=== PATIENT | female | born 1950 | race Caucasian/White ===

== ENCOUNTER 2022-12-19 11:19 | Emergency (ER) | payer OTHER ==
--- OUTSIDE RECORDS SUMMARY | 2022-12-19 11:24 | XMS REPORT | Continuity of Care Document ---
:1950 Author Organization [facility] t Address [address] [place] [address] [place] [id number] Care Team Providers Name Role Phone Va Weems MD Primary Care Physician Sissy Orellana Attending Clinician Unavailable Hue Lutz Attending Clinician Unavailable Carolina Hartley Attending Clinician Unavailable Va Weems Attending Clinician Unavailable Casimiro Tarango Attending Clinician Payers Payer Name Policy Type Policy Number Effective Date Expiration Date Eufemia dent AETNA MEDICARE 53 [id number] 2013 [facility] [facility] MEDICARE MB [id number] 2012 [facility] NOVITAS 00:00:00 [facility] MEDICARE [id number] 2012 [facility] NOVITAS 00:00:00 - [facility] MEDICARE [id number] 2012 [facility] NOVITAS 00:00:[address] [facility] MEDICARE MB [id number] 2012 [facility] NOVITAS 00:00:00 [facility] Problems Condition Condition Condition Status Onset Resolution Last Treating Co mments Source Name Details Category Date Date Treatment Clinician Date Hypertensi Hypertens Problem Active 2022-08-04 Memoria ve aston 11:34:36 l disorder, disorder, Herm faith systemic systemic arterial arterial (disorder) (disorder) Active Problem 08/04/2022 [facility] [place] Muscle Muscle Problem Active 2022-08-04 Jamie alfonso fasciculat fasciculat 11:34:36 l ion yuliya Marinelli (finding) (finding) Active Problem 08/04/2022 [facility] [place] [id number] Vitamin D Problem Comm on deficiency [facility] Fatigue Fatigue Problem Common [facility] Anxiety Anxiety Problem Common [facility] [id number] Hyperlipid Problem Com mon emia, Spirit unspecifie - CHI d hyperlipid [facility] emia type [facility] Elevated Elevated Problem Commo n blood-pres blood-pres Sp heather sure sure - CHI reading reading [facility] without without [facility] diagnosis diagnosis [facility]i denn[facility] hypertensi hypertensi on on History of Status Problem Commo n breast post Spirit augmentati silicone - [facility] on breast [facility] [id number] Environmen Problem Co mmon roro Spirit allergies [facility] [id number] Essential Problem Comm on hypertensi Spirit on [facility] [id number] Osteopenia Problem Co mmon , Spirit unspecifie - CHI d location [facility] [id number] Well adult Problem Co mmon exam [facility] Family Family Problem Common history of history of Sp heather endocrine thyroid - CHI disorders dysfunctio [facility] [id number] Status Problem Commo n 9103 post Spirit implant - CHI removal St from both [facility] Family Family Problem Common history of history of Sp heather cardiovasc cardiovasc - [facility] ular ular St disease disease [facility] Abnormal Abnormal Problem Commo n liver liver [facility] function function [facility] [id number] History of Problem Co mmon basal cell [facility] carcinoma [facility] No known No known Disease Metho di active active st problems problems Hospit a l Allergies, Adverse Reactions, Alerts Allergy Allergy Status Severity Reaction(s) Onset Inactive Treating Comm ents Source Name Type Date Date Clinician Adhesive Propensi Active Rash 2018-02 Method i Tape-Tiffany ty to 02-21 st icones adverse 00:00: Hospita reaction 00 l s to drug Hydrocod Propensi Active Other (See 2018-02 Insomnia Methodi one ty to Comments) 02-21 st adverse 00:00: Hospita reaction 00 l s to drug Penicill Propensi Active Anaphylaxis 2018-02 M ethodi ins ty to 02-21 st adverse 00:00: Hospita reaction 00 l s to drug Shellfis Propensi Active Swelling 2018-02 Has had Met hodi h ty to 02-[address] Derived adverse 00:00: in past Hospita reaction 00 l s to drug Penicill Penicill Active anaphylaxis C ommon in in [facility] crab crab Active Unknown Common allergen allergen [facility] extract extract [facility] Blueberr Blueberr Active Unknown Commo n ies ies [facility] 4614 Drug Active burning Common allergy [facility] shrimp shrimp Active Unknown Common allergen allergen [facility] extract extract [facility] shellfis shellfis Active Memori a h h l Frannie penicill penicill Active Memori a in in l Frannie Family History Family Member Diagnosis Comments Start Date Stop Date Source Natural father [facility] Natural mother [facility] Natural sister [facility] Social History Social Habit Start Date Stop Date Quantity Comments Source History of Tobacco [facility] Sexual orientation [facility] Alcohol intake 2019-01-10 2019-01-10 Current Taoist 00:00:00 00:00:00 non-drinker of Hospital alcohol (finding) History of Social 2019-01-05 2019-01-[address] function 00:00:00 00:00:00 Hospital Tobacco use and 2017-09-11 2017-09-11 Smokeless Taoist exposure 00:00:00 00:00:00 tobacco non-user Hospital Sex Ass[birth year] At [birth year] [facility] 00:00:00 00:00:00 Hospital Smoking Status Start Date Stop Date Source Tobacco smoking status [facility] Medications Ordered Filled Start Stop Current Ordering Indication Dosage Frequency Signature Comments Components Source Medication Medication Date Date Medication? Clinician (SIG) Name Name losartan 50 Yes TAKE 1 Jamie alfonso mg oral 5-08 TABLET BY l tablet 14:58: MOUTH Frannie 00 EVERY DAY FOR 90 DAYS atorvastati 0 Yes TAKE 1 Jamie alfonso n 20 mg 5-08 TABLET BY l oral tablet 14:58: MOUTH Ema nn 00 EVERY DAY IN THE EVENING losartan 50 0 Yes TAKE 1 Jamie alfonso mg oral 5-08 TABLET BY l tablet 14:58: MOUTH Frannie 00 EVERY DAY FOR 90 DAYS atorvastati 0 Yes TAKE 1 Jamie alfonso n 20 mg 5-08 TABLET BY l oral tablet 14:58: MOUTH Ema nn 00 EVERY DAY IN THE EVENING losartan 50 0 Yes TAKE 1 Jamie alfonso mg oral 5-08 TABLET BY l tablet 14:58: MOUTH Frannie 00 EVERY DAY FOR 90 DAYS atorvastati 0 Yes TAKE 1 Jamie alfonso n 20 mg 5-08 TABLET BY l oral tablet 14:58: MOUTH Ema nn 00 EVERY DAY IN THE EVENING Macrobid Macrobid 0 2021- No 1{capsu BID Macrobid 100 MG 100 MG 09-06 le_with 100 MG 00:00: 00:00 _food} 00 :00 B 2018-02 Yes 1{tbl} QD Take 1 Methodi complex-vit 1-[address] ross 06:47: mouth Hospita C-folic 15 daily. l acid (FOLBEE PLUS 5 MG) 5 mg tablet per tablet cholecalcif 2018-02 Yes 2000U QD Take 2,000 Methodi frantz, 1-[address] vitamin D3, 06:47: mouth Hospi ta (VITAMIN 15 daily. l D3) 2,000 unit capsule capsule ascorbic 2018-02 Yes 500mg QD Take 500 Meth sylwia acid, 1-[address] vitamin C, 06:47: mouth Hospit a (VITAMIN C) 15 daily. l 500 MG tablet biotin 5 mg 2018-02 Yes 5mg QD Take 5 mg M ethodi capsule 1-[address] 06:47: daily. Hospita 15 l B 2018-02 Yes 1{tbl} QD Take 1 Methodi complex-vit 1-[address] ross 06:47: mouth Hospita C-folic 15 daily. l acid (FOLBEE PLUS 5 MG) 5 mg tablet per tablet cholecalcif 2018-02 Yes 2000U QD Take 2,000 Methodi frantz, 1-[address] vitamin D3, 06:47: mouth Hospi ta (VITAMIN 15 daily. l D3) 2,000 unit capsule capsule ascorbic 2018-02 Yes 500mg QD Take 500 Meth sylwia acid, 1-28 mg by vitamin C, 06:47: mouth Hospit a (VITAMIN C) 15 daily. l 500 MG tablet biotin 5 mg 2018-02 Yes 5mg QD Take 5 mg M ethodi capsule 03-[address] 06:47: daily. Hospita 15 l B 2018-02 Yes 1{tbl} QD Take 1 Methodi complex-vit -[address] ross 06:47: mouth Hospita C-folic 15 daily. l acid (FOLBEE PLUS 5 MG) 5 mg tablet per tablet cholecalcif 2018-02 Yes 2000U QD Take 2,000 Methodi frantz, 1-28 Units by vitamin D3, 06:47: mouth Hospi ta (VITAMIN 15 daily. l D3) 2,000 unit capsule capsule ascorbic 2018-02 Yes 500mg QD Take 500 Meth sylwia acid, 1-28 mg by vitamin C, 06:47: mouth Hospit a (VITAMIN C) 15 daily. l 500 MG tablet biotin 5 mg 2018-02 Yes 5mg QD Take 5 mg M ethodi capsule 03-[address] 06:47: daily. Hospita 15 l B 2018-02 Yes 1{tbl} QD Take 1 Methodi complex-vit -[address] ross 06:47: mouth Hospita C-folic 15 daily. l acid (FOLBEE PLUS 5 MG) 5 mg tablet per tablet cholecalcif 2018-02 Yes 2000U QD Take 2,000 Methodi frantz, 1-28 Units by vitamin D3, 06:47: mouth Hospi ta (VITAMIN 15 daily. l D3) 2,000 unit capsule capsule ascorbic 2018-02 Yes 500mg QD Take 500 Meth sylwia acid, 1-28 mg by vitamin C, 06:47: mouth Hospit a (VITAMIN C) 15 daily. l 500 MG tablet biotin 5 mg 2018-02 Yes 5mg QD Take 5 mg M ethodi capsule 03-[address] 06:47: daily. Hospita 15 l B 2018-02 Yes 1{tbl} QD Take 1 Methodi complex-vit 1-[address] ross 06:47: mouth Hospita C-folic 15 daily. l acid (FOLBEE PLUS 5 MG) 5 mg tablet per tablet cholecalcif 2018-02 Yes 2000U QD Take 2,000 Methodi frantz, 1-[address] vitamin D3, 06:47: mouth Hospi ta (VITAMIN 15 daily. l D3) 2,000 unit capsule capsule ascorbic 2018-02 Yes 500mg QD Take 500 Meth sylwia acid, 1-28 mg by vitamin C, 06:47: mouth Hospit a (VITAMIN C) 15 daily. l 500 MG tablet biotin 5 mg 2018-02 Yes 5mg QD Take 5 mg M ethodi capsule [address] 06:47: daily. Hospita 15 l B 2018-02 Yes 1{tbl} QD Take 1 Methodi complex-vit 1-[address] ross 06:47: mouth Hospita C-folic 15 daily. l acid (FOLBEE PLUS 5 MG) 5 mg tablet per tablet cholecalcif 2018-02 Yes 2000U QD Take 2,000 Methodi frantz, 1-28 Units by vitamin D3, 06:47: mouth Hospi ta (VITAMIN 15 daily. l D3) 2,000 unit capsule capsule ascorbic 2018-02 Yes 500mg QD Take 500 Meth sylwia acid, 1-28 mg by vitamin C, 06:47: mouth Hospit a (VITAMIN C) 15 daily. l 500 MG tablet biotin 5 mg 2018-02 Yes 5mg QD Take 5 mg M ethodi capsule 03-[address] 06:47: daily. Hospita 15 l B 2018-02 Yes 1{tbl} QD Take 1 Methodi complex-vit -[address] ross 06:47: mouth Hospita C-folic 15 daily. l acid (FOLBEE PLUS 5 MG) 5 mg tablet per tablet cholecalcif 2018-02 Yes 2000U QD Take 2,000 Methodi frantz, 1-28 Units by vitamin D3, 06:47: mouth Hospi ta (VITAMIN 15 daily. l D3) 2,000 unit capsule capsule ascorbic 2018-02 Yes 500mg QD Take 500 Meth sylwia acid, 1-28 mg by vitamin C, 06:47: mouth Hospit a (VITAMIN C) 15 daily. l 500 MG tablet biotin 5 mg 2018-02 Yes 5mg QD Take 5 mg M ethodi capsule [address] 06:47: daily. Hospita 15 l PredniSONE PredniSONE 2019-0 Yes Va 1 tablet Common 3-18 [facility] 00:00: - [facility] 00 [facility] predniSONE predniSONE 2019-0 No 1{table BID predniSONE 10 MG 10 MG 3-18 t} 10 MG 00:00: 00 predniSONE predniSONE 2019-0 No 1{table BID predniSONE 10 MG 10 MG 3-18 t} 10 MG 00:00: 00 predniSONE predniSONE 2019-0 No 1{table BID predniSONE 10 MG 10 MG 3-18 t} 10 MG 00:00: 00 predniSONE predniSONE 2019-0 No 1{table BID predniSONE 10 MG 10 MG 3-18 t} 10 MG 00:00: 00 predniSONE predniSONE 2019-0 No 1{table BID predniSONE 10 MG 10 MG 3-18 t} 10 MG 00:00: 00 Kenalog Kenalog 2019-0 No 40mg Common (Triamcinol (Triamcinol 3-18 S pirit one) one) 00:00: - CHI 00 [facility] predniSONE predniSONE 2019-0 No 1{table BID predniSONE 10 MG 10 MG 3-18 t} 10 MG 00:00: 00 Kenalog Kenalog 2019-0 No 40mg Common (Triamcinol (Triamcinol 3-18 S pirit one) one) 00:00: - CHI 00 [facility] predniSONE predniSONE 2019-0 No 1{table BID predniSONE 10 MG 10 MG 3-18 t} 10 MG 00:00: 00 Kenalog Kenalog 2019-0 No 40mg Common (Triamcinol (Triamcinol 3-18 S pirit one) one) 00:00: - CHI 00 [facility] predniSONE predniSONE 2019-0 No 1{table BID predniSONE 10 MG 10 MG 3-18 t} 10 MG 00:00: 00 Kenalog Kenalog 2019-0 No 40mg Common (Triamcinol (Triamcinol 3-18 S pirit one) one) 00:00: - CHI 00 [facility] predniSONE predniSONE 2019-0 No 1{table BID predniSONE 10 MG 10 MG 3-18 t} 10 MG 00:00: 00 Kenalog Kenalog 2019-0 No 40mg Common (Triamcinol (Triamcinol 3-18 S pirit one) one) 00:00: - CHI 00 [facility] predniSONE predniSONE 2019-0 No 1{table BID predniSONE 10 MG 10 MG 3-18 t} 10 MG 00:00: 00 Kenalog Kenalog 2019-0 No 40mg Common (Triamcinol (Triamcinol 3-18 S pirit one) one) 00:00: - CHI 00 [facility] predniSONE predniSONE 2019-0 No 1{table BID predniSONE 10 MG 10 MG 3-18 t} 10 MG 00:00: 00 Kenalog Kenalog 2019-0 No 40mg Common (Triamcinol (Triamcinol 3-18 S pirit one) one) 00:00: - CHI 00 [facility] predniSONE predniSONE 2019-0 No 1{table BID predniSONE 10 MG 10 MG 3-18 t} 10 MG 00:00: 00 Kenalog Kenalog 2019-0 No 40mg Common (Triamcinol (Triamcinol 3-18 S pirit one) one) 00:00: - CHI 00 [facility] Solumedrol Solumedrol 2018-0 No 125mg Common 125mg/2ml 125mg/2ml 8-06 Spiri t 00:00: - CHI 00 [facility] Solumedrol Solumedrol 2018-0 No 125mg Common 125mg/2ml 125mg/2ml 8-06 Spiri t 00:00: - CHI 00 [facility] Solumedrol Solumedrol 2018-0 No 125mg Common 125mg/2ml 125mg/2ml 8-06 Spiri t 00:00: - CHI 00 [facility] Solumedrol Solumedrol 2018-0 No 125mg Common 125mg/2ml 125mg/2ml 8-06 Spiri t 00:00: - CHI 00 [facility] Solumedrol Solumedrol 2018-0 No 125mg Common 125mg/2ml 125mg/2ml 8-06 Spiri t 00:00: - CHI 00 [facility] Solumedrol Solumedrol 2018-0 No 125mg Common 125mg/2ml 125mg/2ml 8-06 Spiri t 00:00: - CHI 00 [facility] Solumedrol Solumedrol 2018-0 No 125mg Common 125mg/2ml 125mg/2ml 8-06 Spiri t 00:00: - CHI 00 [facility] Solumedrol Solumedrol 2018-0 No 125mg Common 125mg/2ml 125mg/2ml 8-06 Spiri t 00:00: - CHI 00 [facility] Escitalopra Escitalopra Yes Va 1 tablet Common m Oxalate m Oxalate 7-05 [facility] 00:00: - [facility] 00 [facility] Escitalopra Escitalopra No 1{table QD Escitalopr m Oxalate m Oxalate 7-05 t} am Oxalate 20 mg 20 mg 00:00: 20 mg 00 Escitalopra Escitalopra No 1{table QD Escitalopr m Oxalate m Oxalate 7-05 t} am Oxalate 20 mg 20 mg 00:00: 20 mg 00 Escitalopra Escitalopra No 1{table QD Escitalopr m Oxalate m Oxalate 7-05 t} am Oxalate 20 mg 20 mg 00:00: 20 mg 00 Escitalopra Escitalopra No 1{table QD Escitalopr m Oxalate m Oxalate 7-05 t} am Oxalate 20 mg 20 mg 00:00: 20 mg 00 Escitalopra Escitalopra 2017- No 1{table QD Escitalopr m Oxalate m Oxalate 7-05 t} am Oxalate 20 mg 20 mg 00:00: 20 mg 00 Escitalopra Escitalopra 2017- No 1{table QD Escitalopr m Oxalate m Oxalate 7-05 t} am Oxalate 20 mg 20 mg 00:00: 20 mg 00 Escitalopra Escitalopra 2017- No 1{table QD Escitalopr m Oxalate m Oxalate 7-05 t} am Oxalate 20 mg 20 mg 00:00: 20 mg 00 Escitalopra Escitalopra 2017- No 1{table QD Escitalopr m Oxalate m Oxalate 7-05 t} am Oxalate 20 mg 20 mg 00:00: 20 mg 00 Escitalopra Escitalopra 2017- No 1{table QD Escitalopr m Oxalate m Oxalate 7-05 t} am Oxalate 20 mg 20 mg 00:00: 20 mg 00 Escitalopra Escitalopra 2017- No 1{table QD Escitalopr m Oxalate m Oxalate 7-05 t} am Oxalate 20 mg 20 mg 00:00: 20 mg 00 Escitalopra Escitalopra 2017- No 1{table QD Escitalopr m Oxalate m Oxalate 705 t} am Oxalate 20 mg 20 mg 00:00: 20 mg 00 Escitalopra Escitalopra No 1{table QD Escitalopr m Oxalate m Oxalate 705 t} am Oxalate 20 mg 20 mg 00:00: 20 mg 00 atorvastati Yes Method i n (LIPITOR) 705 st 20 MG 00:00: Hospita tablet 00 l atorvastati Yes Method i n (LIPITOR) 705 st 20 MG 00:00: Hospita tablet 00 l atorvastati Yes Method i n (LIPITOR) 705 st 20 MG 00:00: Hospita tablet 00 l atorvastati Yes Method i n (LIPITOR) 705 st 20 MG 00:00: Hospita tablet 00 l atorvastati Yes Method i n (LIPITOR) 705 st 20 MG 00:00: Hospita tablet 00 l atorvastati Yes Method i n (LIPITOR) 705 st 20 MG 00:00: Hospita tablet 00 l atorvastati Yes Method i n (LIPITOR) 705 st 20 MG 00:00: Hospita tablet 00 l B-Complex B-Complex Yes Va as Comm on Millender directed [facility] Biotin Biotin Yes Va 1 tablet Common Millender [facility] Aspirin Aspirin Yes Va 1 tablet Comm on Adult Low Adult Low [facility] Dose Dose - [facility]I [facility] Atorvastati Atorvastati Yes Va 1 tablet Common n Calcium n Calcium Millender in evening [facility] Vitamin C Vitamin C Yes Va 1 tablet Common [facility] Katt Katt Yes Va not Common Millender defined Spirit [facility] Meloxicam Meloxicam Yes Va 1/2 to 1 Common Millender tablet as Spiri t needed for - CHI pain [facility] Vitamin D Vitamin D Yes Va 1 tablet Common Millender [facility] Flonase Flonase Yes Va not Common Millender defined [facility] Vitamin C Vitamin C No 1{table QD Vitamin C 1000 MG 1000 MG t} 1000 MG Biotin 5000 Biotin 5000 No 1{table QD Biotin MCG MCG t} 5000 MCG Meloxicam Meloxicam No QD Meloxicam 15 MG 15 MG 15 MG Atorvastati Atorvastati No QD Atorvastat n Calcium n Calcium in Calcium 20 MG 20 MG 20 MG Vitamin D Vitamin D No 1{table QD Vitamin D 1000 UNIT 1000 UNIT t} 1000 UNIT B-Complex - B-Complex - No B-Complex - Aspirin Aspirin No 1{table QD Aspirin Adult Low Adult Low t} Adult Low Dose 81 MG Dose 81 MG Dose 81 MG Flonase Flonase No Flonase Katt Katt No Katt Apple Cider Apple Cider No Apple Vinegar Vinegar Cider Vinegar Losartan Losartan No 1{table QD Losartan Potassium Potassium t} Potassium 50 MG 50 MG 50 MG Vitamin D Vitamin D No 1{table QD Vitamin D 1000 UNIT 1000 UNIT t} 1000 UNIT Calcium 600 Calcium 600 No 1{table QD Calcium MG MG t_with_ 600 MG meals} Meloxicam Meloxicam No QD Meloxicam 15 MG 15 MG 15 MG Apple Cider Apple Cider No Apple Vinegar Vinegar Cider Vinegar Vitamin C Vitamin C No 1{table QD Vitamin C 1000 MG 1000 MG t} 1000 MG Aspirin Aspirin No 1{table QD Aspirin Adult Low Adult Low t} Adult Low Dose 81 MG Dose 81 MG Dose 81 MG Biotin 5000 Biotin 5000 No 1{table QD Biotin MCG MCG t} 5000 MCG Atorvastati Atorvastati No QD Atorvastat n Calcium n Calcium in Calcium 20 MG 20 MG 20 MG Losartan Losartan No 1{table QD Losartan Potassium Potassium t} Potassium 50 MG 50 MG 50 MG B-Complex - B-Complex - No B-Complex - Zinc 50 MG Zinc 50 MG No 1{table QD Zinc 50 MG t} Katt Katt No Katt Flonase Flonase No Flonase Aspirin 81 Aspirin 81 No 1{table QD Aspirin 81 MG MG t} MG Vitamin D Vitamin D No 1{table QD Vitamin D 1000 UNIT 1000 UNIT t} 1000 UNIT Calcium 600 Calcium 600 No 1{table QD Calcium MG MG t_with_ 600 MG meals} Meloxicam Meloxicam No QD Meloxicam 15 MG 15 MG 15 MG Apple Cider Apple Cider No Apple Vinegar Vinegar Cider Vinegar Vitamin C Vitamin C No 1{table QD Vitamin C 1000 MG 1000 MG t} 1000 MG Aspirin Aspirin No 1{table QD Aspirin Adult Low Adult Low t} Adult Low Dose 81 MG Dose 81 MG Dose 81 MG Biotin 5000 Biotin 5000 No 1{table QD Biotin MCG MCG t} 5000 MCG Atorvastati Atorvastati No QD Atorvastat n Calcium n Calcium in Calcium 20 MG 20 MG 20 MG Losartan Losartan No 1{table QD Losartan Potassium Potassium t} Potassium 50 MG 50 MG 50 MG B-Complex - B-Complex - No B-Complex - Zinc 50 MG Zinc 50 MG No 1{table QD Zinc 50 MG t} Katt Katt No Katt Flonase Flonase No Flonase Aspirin 81 Aspirin 81 No 1{table QD Aspirin 81 MG MG t} MG Calcium 600 Calcium 600 No 1{table QD Calcium MG MG t_with_ 600 MG meals} Zinc 50 MG Zinc 50 MG No 1{table QD Zinc 50 MG t} Meloxicam Meloxicam No QD Meloxicam 15 MG 15 MG 15 MG Flonase Flonase No Flonase Atorvastati Atorvastati No QD Atorvastat n Calcium n Calcium in Calcium 20 MG 20 MG 20 MG Katt Katt No Katt Vitamin C Vitamin C No 1{table QD Vitamin C 1000 MG 1000 MG t} 1000 MG Losartan Losartan No 1{table QD Losartan Potassium Potassium t} Potassium 50 MG 50 MG 50 MG Vitamin D Vitamin D No 1{table QD Vitamin D 1000 UNIT 1000 UNIT t} 1000 UNIT Biotin 5000 Biotin 5000 No 1{table QD Biotin MCG MCG t} 5000 MCG B-Complex - B-Complex - No B-Complex - Aspirin 81 Aspirin 81 No 1{table QD Aspirin 81 MG MG t} MG Apple Cider Apple Cider No Apple Vinegar Vinegar Cider Vinegar Aspirin Aspirin No 1{table QD Aspirin Adult Low Adult Low t} Adult Low Dose 81 MG Dose 81 MG Dose 81 MG Losartan Losartan No 1{table QD Losartan Potassium Potassium t} Potassium 50 MG 50 MG 50 MG Calcium 600 Calcium 600 No 1{table QD Calcium MG MG t_with_ 600 MG meals} Meloxicam Meloxicam No QD Meloxicam 15 MG 15 MG 15 MG Flonase Flonase No Flonase Katt Katt No Katt Atorvastati Atorvastati No Atorvastat n Calcium n Calcium in Calcium 20 MG 20 MG 20 MG Vitamin C Vitamin C No 1{table QD Vitamin C 1000 MG 1000 MG t} 1000 MG Vitamin D Vitamin D No 1{table QD Vitamin D 1000 UNIT 1000 UNIT t} 1000 UNIT Aspirin Aspirin No 1{table QD Aspirin Adult Low Adult Low t} Adult Low Dose 81 MG Dose 81 MG Dose 81 MG B-Complex - B-Complex - No B-Complex - Biotin 5000 Biotin 5000 No 1{table QD Biotin MCG MCG t} 5000 MCG Aspirin 81 Aspirin 81 No 1{table QD Aspirin 81 MG MG t} MG Apple Cider Apple Cider No Apple Vinegar Vinegar Cider Vinegar Zinc 50 MG Zinc 50 MG No 1{table QD Zinc 50 MG t} Aspirin 81 Aspirin 81 No 1{table QD Aspirin 81 MG MG t} MG Biotin 5000 Biotin 5000 No 1{table QD Biotin MCG MCG t} 5000 MCG Aspirin Aspirin No 1{table QD Aspirin Adult Low Adult Low t} Adult Low Dose 81 MG Dose 81 MG Dose 81 MG Flonase Flonase No Flonase Atorvastati Atorvastati No Atorvastat n Calcium n Calcium in Calcium 20 MG 20 MG 20 MG Meloxicam Meloxicam No QD Meloxicam 15 MG 15 MG 15 MG Apple Cider Apple Cider No Apple Vinegar Vinegar Cider Vinegar Atorvastati Atorvastati No QD Atorvastat n Calcium n Calcium in Calcium 20 MG 20 MG 20 MG Vitamin D Vitamin D No 1{table QD Vitamin D 1000 UNIT 1000 UNIT t} 1000 UNIT Losartan Losartan No 1{table QD Losartan Potassium Potassium t} Potassium 50 MG 50 MG 50 MG Losartan Losartan No 1{table QD Losartan Potassium Potassium t} Potassium 50 MG 50 MG 50 MG Calcium 600 Calcium 600 No 1{table QD Calcium MG MG t_with_ 600 MG meals} B-Complex - B-Complex - No B-Complex - Katt Katt No Katt Zinc 50 MG Zinc 50 MG No 1{table QD Zinc 50 MG t} Vitamin C Vitamin C No 1{table QD Vitamin C 1000 MG 1000 MG t} 1000 MG Biotin 5000 Biotin 5000 No 1{table QD Biotin MCG MCG t} 5000 MCG Vitamin C Vitamin C No 1{table QD Vitamin C 1000 MG 1000 MG t} 1000 MG Flonase Flonase No Flonase Aspirin 81 Aspirin 81 No 1{table QD Aspirin 81 MG MG t} MG Atorvastati Atorvastati No Atorvastat n Calcium n Calcium in Calcium 20 MG 20 MG 20 MG Aspirin Aspirin No 1{table QD Aspirin Adult Low Adult Low t} Adult Low Dose 81 MG Dose 81 MG Dose 81 MG Meloxicam Meloxicam No QD Meloxicam 15 MG 15 MG 15 MG Apple Cider Apple Cider No Apple Vinegar Vinegar Cider Vinegar Vitamin D Vitamin D No 1{table QD Vitamin D 1000 UNIT 1000 UNIT t} 1000 UNIT Losartan Losartan No 1{table QD Losartan Potassium Potassium t} Potassium 50 MG 50 MG 50 MG B-Complex - B-Complex - No B-Complex - Calcium 600 Calcium 600 No 1{table QD Calcium MG MG t_with_ 600 MG meals} Atorvastati Atorvastati No QD Atorvastat n Calcium n Calcium in Calcium 20 MG 20 MG 20 MG Katt Katt No Katt Zinc 50 MG Zinc 50 MG No 1{table QD Zinc 50 MG t} Losartan Losartan No 1{table QD Losartan Potassium Potassium t} Potassium 50 MG 50 MG 50 MG Katt Katt No Katt Vitamin D Vitamin D No 1{table QD Vitamin D 1000 UNIT 1000 UNIT t} 1000 UNIT Zinc 50 MG Zinc 50 MG No 1{table QD Zinc 50 MG t} Vitamin C Vitamin C No 1{table QD Vitamin C 1000 MG 1000 MG t} 1000 MG Meloxicam Meloxicam No QD Meloxicam 15 MG 15 MG 15 MG Aspirin 81 Aspirin 81 No 1{table QD Aspirin 81 MG MG t} MG Losartan Losartan No 1{table QD Losartan Potassium Potassium t} Potassium 50 MG 50 MG 50 MG Biotin 5000 Biotin 5000 No 1{table QD Biotin MCG MCG t} 5000 MCG Apple Cider Apple Cider No Apple Vinegar Vinegar Cider Vinegar B-Complex - B-Complex - No B-Complex - Atorvastati Atorvastati No QD Atorvastat n Calcium n Calcium in Calcium 20 MG 20 MG 20 MG Aspirin Aspirin No 1{table QD Aspirin Adult Low Adult Low t} Adult Low Dose 81 MG Dose 81 MG Dose 81 MG Flonase Flonase No Flonase Calcium 600 Calcium 600 No 1{table QD Calcium MG MG t_with_ 600 MG meals} Katt Katt No Katt Calcium 600 Calcium 600 No 1{table QD Calcium MG MG t_with_ 600 MG meals} Zinc 50 MG Zinc 50 MG No 1{table QD Zinc 50 MG t} B-Complex - B-Complex - No B-Complex - Meloxicam Meloxicam No QD Meloxicam 15 MG 15 MG 15 MG Aspirin Aspirin No 1{table QD Aspirin Adult Low Adult Low t} Adult Low Dose 81 MG Dose 81 MG Dose 81 MG Vitamin C Vitamin C No 1{table QD Vitamin C 1000 MG 1000 MG t} 1000 MG Losartan Losartan No 1{table QD Losartan Potassium Potassium t} Potassium 50 MG 50 MG 50 MG Atorvastati Atorvastati No QD Atorvastat n Calcium n Calcium in Calcium 20 MG 20 MG 20 MG Flonase Flonase No Flonase Aspirin 81 Aspirin 81 No 1{table QD Aspirin 81 MG MG t} MG Biotin 5000 Biotin 5000 No 1{table QD Biotin MCG MCG t} 5000 MCG Vitamin D Vitamin D No 1{table QD Vitamin D 1000 UNIT 1000 UNIT t} 1000 UNIT Apple Cider Apple Cider No Apple Vinegar Vinegar Cider Vinegar Katt Katt No Katt Calcium 600 Calcium 600 No 1{table QD Calcium MG MG t_with_ 600 MG meals} Zinc 50 MG Zinc 50 MG No 1{table QD Zinc 50 MG t} B-Complex - B-Complex - No B-Complex - Meloxicam Meloxicam No QD Meloxicam 15 MG 15 MG 15 MG Aspirin Aspirin No 1{table QD Aspirin Adult Low Adult Low t} Adult Low Dose 81 MG Dose 81 MG Dose 81 MG Aspirin 81 Aspirin 81 No 1{table QD Aspirin 81 MG MG t} MG Vitamin C Vitamin C No 1{table QD Vitamin C 1000 MG 1000 MG t} 1000 MG Losartan Losartan No Losartan Potassium Potassium Potassium 50 MG 50 MG 50 MG Flonase Flonase No Flonase Apple Cider Apple Cider No Apple Vinegar Vinegar Cider Vinegar Biotin 5000 Biotin 5000 No 1{table QD Biotin MCG MCG t} 5000 MCG Vitamin D Vitamin D No 1{table QD Vitamin D 1000 UNIT 1000 UNIT t} 1000 UNIT Atorvastati Atorvastati No QD Atorvastat n Calcium n Calcium in Calcium 20 MG 20 MG 20 MG Katt Katt No Katt Calcium 600 Calcium 600 No 1{table QD Calcium MG MG t_with_ 600 MG meals} Zinc 50 MG Zinc 50 MG No 1{table QD Zinc 50 MG t} B-Complex - B-Complex - No B-Complex - Meloxicam Meloxicam No QD Meloxicam 15 MG 15 MG 15 MG Aspirin Aspirin No 1{table QD Aspirin Adult Low Adult Low t} Adult Low Dose 81 MG Dose 81 MG Dose 81 MG Aspirin 81 Aspirin 81 No 1{table QD Aspirin 81 MG MG t} MG Vitamin C Vitamin C No 1{table QD Vitamin C 1000 MG 1000 MG t} 1000 MG Losartan Losartan No Losartan Potassium Potassium Potassium 50 MG 50 MG 50 MG Flonase Flonase No Flonase Apple Cider Apple Cider No Apple Vinegar Vinegar Cider Vinegar Biotin 5000 Biotin 5000 No 1{table QD Biotin MCG MCG t} 5000 MCG Vitamin D Vitamin D No 1{table QD Vitamin D 1000 UNIT 1000 UNIT t} 1000 UNIT Atorvastati Atorvastati No QD Atorvastat n Calcium n Calcium in Calcium 20 MG 20 MG 20 MG Katt Katt No Katt Calcium 600 Calcium 600 No 1{table QD Calcium MG MG t_with_ 600 MG meals} Zinc 50 MG Zinc 50 MG No 1{table QD Zinc 50 MG t} B-Complex - B-Complex - No B-Complex - Meloxicam Meloxicam No QD Meloxicam 15 MG 15 MG 15 MG Aspirin Aspirin No 1{table QD Aspirin Adult Low Adult Low t} Adult Low Dose 81 MG Dose 81 MG Dose 81 MG Vitamin C Vitamin C No 1{table QD Vitamin C 1000 MG 1000 MG t} 1000 MG Losartan Losartan No 1{table QD Losartan Potassium Potassium t} Potassium 50 MG 50 MG 50 MG Atorvastati Atorvastati No QD Atorvastat n Calcium n Calcium in Calcium 20 MG 20 MG 20 MG Flonase Flonase No Flonase Aspirin 81 Aspirin 81 No 1{table QD Aspirin 81 MG MG t} MG Biotin 5000 Biotin 5000 No 1{table QD Biotin MCG MCG t} 5000 MCG Vitamin D Vitamin D No 1{table QD Vitamin D 1000 UNIT 1000 UNIT t} 1000 UNIT Apple Cider Apple Cider No Apple Vinegar Vinegar Cider Vinegar Immunizations Ordered Filled Immunization Date Status Comments Sourc e Immunization Name Name Nasir COVID-19 Melojane COVID-19 2020-12-14 Completed [facility] Vaccine 11:47:00 - [facility] Moderna COVID-19 Moderna COVID-19 2020-12-14 Completed [facility] Vaccine Vaccine 11:47:00 - [facility] Moderna COVID-19 Moderna COVID-19 2020-12-14 Completed [facility] Vaccine Vaccine 11:47:00 - [facility] Moderna COVID-19 Moderna COVID-19 2020-12-14 Completed [facility] Vaccine Vaccine 11:47:00 - [facility] Moderna COVID-19 Moderna COVID-19 2020-12-14 Completed [facility] Vaccine Vaccine 11:47:00 - [facility] Moderna COVID-19 Moderna COVID-19 2020-12-14 Completed [facility] Vaccine Vaccine 11:47:00 - [facility] Moderna COVID-19 Moderna COVID-19 2020-12-14 Completed [facility] Vaccine Vaccine 11:47:00 - [facility] Moderna COVID-19 Moderna COVID-19 2020-12-14 Completed [facility] Vaccine Vaccine 11:47:00 - [facility] Kenalog Kenalog 2018-04-26 Completed [facility] (Triamcinolone) (Triamcinolone) 11:24:00 - [facility] Kenalog Kenalog 2018-04-26 Completed [facility] (Triamcinolone) (Triamcinolone) 11:24:00 [facility] Kenalog Kenalog 2018-04-26 Completed [facility] (Triamcinolone) (Triamcinolone) 11:24:00 - [facility] Solumedrol Solumedrol 2017-09-14 Completed [facility] 125mg/2ml 125mg/2ml 10:31:00 - [facility] Solumedrol Solumedrol 2017-09-14 Completed [facility] 125mg/2ml 125mg/2ml 10:31:00 - [facility] Solumedrol Solumedrol 2017-09-14 Completed [facility] 125mg/2ml 125mg/2ml 10:31:00 - [facility] Moderna COVID-19 Moderna COVID-19 Unknown Completed [facility] Vaccine Vaccine - [facility] Vital Signs Vital Name Observation Time Observation Value Comments Source height 2021-10-17 15:00:00 62 [in_i] [facility] weight 2021-10-17 15:00:00 158 [lb_av] [facility] temperature 2021-10-17 15:00:00 97.2 [degF] [facility] - [facility] bmi 2021-10-17 15:00:00 28.9 kg/m2 [facility] - [facility] oximetry 2021-10-17 15:00:00 99 % [facility] blood pressure 2021-10-17 15:00:00 132 mm[Hg] [facility] - systolic [facility] blood pressure 2021-10-17 15:00:00 70 mm[Hg] [facility] - diastolic [facility] height 2021-10-17 15:00:00 62 [in_i] Common [facility] - [facility] weight 2021-10-17 15:00:00 158.0 [lb_av] [facility] temperature 2021-10-17 15:00:00 97.2 [degF] Common S pirit [facility] bmi 2021-10-17 15:00:00 28.90 kg/m2 [facility] S pirit [facility] oximetry 2021-10-17 15:00:00 99 % Common S pirit [facility] respiratory rate 2021-10-17 15:00:00 18 /min Comm on [facility] - [facility] blood pressure 2021-10-17 15:00:00 132 mm[Hg] [facility] - systolic [facility] blood pressure 2021-10-17 15:00:00 70 mm[Hg] [facility] - diastolic [facility] height 2021-08-28 11:40:00 62 [in_i] Common [facility] weight 2021-08-28 11:40:00 157 [lb_av] Common [facility] temperature 2021-08-28 11:40:00 97 [degF] Common S [facility] bmi 2021-08-28 11:40:00 28.71 kg/m2 [facility] height 2020-11-26 08:40:00 62 [in_i] [facility] weight 2020-11-26 08:40:00 156.2 [lb_av] Common [facility] temperature 2020-11-26 08:40:00 96.8 [degF] [facility] bmi 2020-11-26 08:40:00 28.57 kg/m2 [facility] oximetry 2020-11-26 08:40:00 98 % [facility] respiratory rate 2020-11-26 08:40:00 18 /min Comm on [facility] - [facility] blood pressure 2020-11-26 08:40:00 122 mm[Hg] [facility] - systolic [facility] blood pressure 2020-11-26 08:40:00 80 mm[Hg] [facility] - diastolic [facility] Systolic (mm Hg) 2022-08-01 14:32:00 Jamie rial Frannie Diastolic (mm Hg) 2022-08-01 14:32:00 Mem orial [facility]annie Heart Rate 2022-08-01 14:32:00 [facility] Height 2022-08-01 14:32:00 5 [ft_i] [facility] Weight 2022-08-01 14:32:[address] [facility] Frannie BMI Calculated 2022-08-01 14:32:00 Memori al Yves Systolic (mm Hg) 2022-06-16 14:53:00 Jamie rial Frannie Diastolic (mm Hg) 2022-06-16 14:53:00 Mem orial Yves Heart Rate 2022-06-16 14:53:[address] [facility] Frannie Height 2022-06-16 14:53:00 5 [ft_i] [facility] Weight 2022-06-16 14:53:00 [facility] BMI Calculated 2022-06-16 14:53:00 Graciela al Frannie Procedures Procedure Date / Time Performed Performing Clinician Laura e Breast implant [facility] displaced<sup>1</sup> Rotator cuff repair [facility] Breast augmentation [facility] Hysterectomy [facility] Plan of Care Planned Activity Planned Date Details Comments Source Future Scheduled 2022-12-05 [facility] Test 05:18:35 malignant neoplasm of colon (procedure) [code = 210411564] Future Scheduled 2022-12-05 [facility] Test 05:18:35 malignant neoplasm of colon (procedure) [code = 355143988] Future Scheduled 2022-12-05 [facility] Test 05:18:35 malignant neoplasm of colon (procedure) [code = 801651015] Future Scheduled 2022-12-05 COVID-19 VACCINE (#[facility] Test 05:18:35 [code = COVID-19 VACCINE (#1)] Future Scheduled 2022-12-05 BREAST CANCER [facility] Test 05:18:35 SCREENING [code = BREAST CANCER SCREENING] Future Scheduled 2022-12-05 [facility] Test 05:18:35 malignant neoplasm of colon (procedure) [code = 175618852] Future Scheduled 2022-12-05 [facility] Test 05:18:35 malignant neoplasm of colon (procedure) [code = 231374542] Future Scheduled 2022-12-05 [facility]INGLES [facility]ACCINES ([facility] 05:18:35 of 2) [code = SHINGLES VACCINES (1 of 2)] Future Scheduled 2022-12-05 65+ PNEUMOCOCCAL [facility] Test 05:18:35 VACCINE (1 - PCV) [code = 65+ PNEUMOCOCCAL VACCINE (1 - PCV)] Future Scheduled 2022-12-05 INFLUEN[facility]ACCINE (#[facility]) [facility] Test 05:18:35 [code = INFLUENZA VACCINE (#1)] Future Scheduled 2022-12-05 [facility] Test 05:18:35 malignant neoplasm of colon (procedure) [code = 790285305] Future Scheduled 2022-12-05 [facility] Test 05:18:35 malignant neoplasm of colon (procedure) [code = 832454418] Future Scheduled 2022-12-05 [facility] Test 05:18:35 malignant neoplasm of colon (procedure) [code = 578895654] Future Scheduled 2022-12-05 [facility] Test 05:18:35 malignant neoplasm of colon (procedure) [code = 817421204] Future Scheduled 2022-12-05 [facility] Test 05:18:35 malignant neoplasm of colon (procedure) [code = 384149143] Future Scheduled 2022-12-05 [facility] Test 05:18:35 malignant neoplasm of colon (procedure) [code = 504220203] Future Scheduled 2022-12-05 COVID-19 VACCINE (#1) [facility] Test 05:18:35 [code = COVID-19 VACCINE (#1)] Future Scheduled 2022-12-05 BREAST [facility]CER [facility] Test 05:18:35 SCREENING [code = BREAST CANCER SCREENING] Future Scheduled 2022-12-05 [facility] Test 05:18:35 malignant neoplasm of colon (procedure) [code = 101428644] Future Scheduled 2022-12-05 [facility] Test 05:18:35 malignant neoplasm of colon (procedure) [code = 979514624] Future Scheduled 2022-12-05 SHINGLES VACCINES (1 [facility] 05:18:35 of 2) [code = SHINGLES VACCINES (1 of 2)] Future Scheduled 2022-12-05 65+ PNEUMOCOCCAL [facility] Test 05:18:35 VACCINE (1 - PCV) [code = 65+ PNEUMOCOCCAL VACCINE (1 - PCV)] Future Scheduled 2022-12-05 INFLUENZA VACCINE (#1) [facility] Test 05:18:35 [code = INFLUENZA VACCINE (#1)] Future Scheduled 2022-12-05 COVID-19 VACCINE (#1) [facility] Test 05:18:35 [code = COVID-19 VACCINE (#1)] Future Scheduled 2022-12-05 [facility] Test 05:18:35 SCREENING [code = BREAST CANCER SCREENING] Future Scheduled 2022-12-05 [facility] Test 05:18:35 malignant neoplasm of colon (procedure) [code = 407316695] Future Scheduled 2022-12-05 [facility] Test 05:18:35 malignant neoplasm of colon (procedure) [code = 616319584] Future Scheduled 2022-12-05 SHINGLES VACCINES (1 Met [facility] Test 05:18:35 of 2) [code = SHINGLES VACCINES (1 of 2)] Future Scheduled 2022-12-05 65+ [facility]OCOCCAL [facility] Test 05:18:35 VACCINE (1 - PCV) [code = 65+ PNEUMOCOCCAL VACCINE (1 - PCV)] Future Scheduled 2022-12-05 INFLUENZA VACCINE (#1) [facility] Test 05:18:35 [code = INFLUENZA VACCINE (#1)] Future Scheduled 2022-02-11 COVID-19 VACCINE (#1) [facility] Test 22:11:47 [code = COVID-19 VACCINE (#1)] Future Scheduled 2022-02-11 BREAST CANCER [facility] Test 22:11:47 SCREENING [code = BREAST CANCER SCREENING] Future Scheduled 2022-02-11 COLONOSCOPY SCREENING [facility] Test 22:11:47 [code = COLONOSCOPY SCREENING] Future Scheduled 2022-02-11 SHINGLES VACCINES (1 [facility] Test 22:11:47 of 2) [code = SHINGLES VACCINES (1 of 2)] Future Scheduled 2022-02-11 65+ [facility] Test 22:11:47 VACCINE (1 - PCV) [code = 65+ PNEUMOCOCCAL VACCINE (1 - PCV)] Future Scheduled 2022-02-11 INFLUENZA VACCINE [facility] Test 22:11:47 [code = INFLUENZA VACCINE] Future Scheduled 2022-02-11 COVID-19 VACCINE (#1) [facility] Test 22:11:47 [code = COVID-19 VACCINE (#1)] Future Scheduled 2022-02-11 [facility] Test 22:11:47 SCREENING [code = BREAST CANCER SCREENING] Future Scheduled 2022-02-11 COLONOSCOPY SCREENING [facility] Test 22:11:47 [code = COLONOSCOPY SCREENING] Future Scheduled 2022-02-11 SHINGLES VACCINES (1 Met [facility] Test 22:11:47 of 2) [code = SHINGLES VACCINES (1 of 2)] Future Scheduled 2022-02-11 65+ [facility]OCCAL [facility] Test 22:11:47 VACCINE (1 - PCV) [code = 65+ PNEUMOCOCCAL VACCINE (1 - PCV)] Future Scheduled 2022-02-11 INFLUENZA VACCINE [facility] Test 22:11:47 [code = INFLUENZA VACCINE] Future Scheduled 2022-02-11 COVID-19 VACCINE (#1) [facility] Test 22:11:47 [code = COVID-19 VACCINE (#1)] Future Scheduled 2022-02-11 BREAST CANCER [facility] Test 22:11:47 SCREENING [code = BREAST CANCER SCREENING] Future Scheduled 2022-02-11 COLONOSCOPY SCREENING [facility] Test 22:11:47 [code = COLONOSCOPY SCREENING] Future Scheduled 2022-02-11 SHINGLES VACCINES (1 Met [facility] Test 22:11:47 of 2) [code = SHINGLES VACCINES (1 of 2)] Future Scheduled 2022-02-11 65+ PNEUMOCOCCAL [facility] Test 22:11:47 VACCINE (1 - PCV) [code = 65+ PNEUMOCOCCAL VACCINE (1 - PCV)] Future Scheduled 2022-02-11 INFLUENZA VACCINE [facility] Test 22:11:47 [code = INFLUENZA VACCINE] Future Scheduled 2022-02-11 COVID-19 VACCINE (#1) [facility] Test 22:11:47 [code = COVID-19 VACCINE (#1)] Future Scheduled 2022-02-11 BREAST CANCER [facility] Test 22:11:47 SCREENING [code = BREAST CANCER SCREENING] Future Scheduled 2022-02-11 COLONOSCOPY SCREENING [facility] Test 22:11:47 [code = COLONOSCOPY SCREENING] Future Scheduled 2022-02-11 SHINGLES VACCINES (1 Met [facility] Test 22:11:47 of 2) [code = SHINGLES VACCINES (1 of 2)] Future Scheduled 2022-02-11 65+ PNEUMOCOCCAL [facility] Test 22:11:47 VACCINE (1 - PCV) [code = 65+ PNEUMOCOCCAL VACCINE (1 - PCV)] Future Scheduled 2022-02-11 INFLUENZA VACCINE [facility] Test 22:11:47 [code = INFLUENZA VACCINE] Encounters Start End Encounter Admission Attending Care Care Encounter Source Date/Time Date/Time Type Type Clinicians Facility Department ID 2022-04-03 Outpatient Reyna, [facility] [id number] Common 15:11:01 Sissy [address] [facility] 2021-08-26 Outpatient Lutz, Na STLMLC STLMLC [id number] Common 09:06:00 [id number] [facility] 2021-03-06 Outpatient Lutz, Na STLMLC STLMLC [id number] Common 14:25:21 [id number] [facility] 2021-03-06 Outpatient Lutz, Na STLMLC STLMLC [id number] Common 14:12:26 [id number] [facility] 2021-03-06 Outpatient Lutz, Na STLMLC STLMLC [id number] Common 14:02:18 [id number] [facility] 2021-03-06 Outpatient Lutz, Na STLMLC STLMLC [id number] Common 13:09:00 [id number] [facility] 2021-03-06 Outpatient Odilia, STLMLC STLMLC [id number] Common 12:32:59 [place] [address] [facility] 2021-03-06 Outpatient Odilia, STLMLC STLMLC [id number] Common 12:07:32 [place] [address] [facility] 2021-03-06 Outpatient Odilia, STLMLC STLMLC [id number] Common 12:06:46 [place] [address] [facility] 2021-03-06 Outpatient Millender, STLMLC STLMLC [id number] Common 12:04:05 [place] [address] [facility] 2021-03-06 Outpatient Millender, STLMLC STLMLC [id number] Common 11:09:56 [place] [address] [facility] 2022-08-01 2022-08-02 Outpatient MHIE MNA [id number] Memoria 15:00:00 04:59:59 Neurology 01 l Ino Marinelli 2022-08-01 2022-08-02 Outpatient MHIE MNA [id number] Memoria 15:00:00 04:59:59 Neurology 01 l [place] [facility] 2022-08-01 2022-08-01 [id number] 10:00:00 23:59:59 Casimiro Mason 2022-08-01 2022-08-01 Outpatient MHIE MHIE [id number] Memoria 10:00:00 10:00:00 01 antoinette Marinelli 2022-06-16 2022-06-17 Outpatient MHIE MNA [id number] Memoria 15:00:00 04:59:59 Neurology 00 l Ino Marinelli 2022-06-16 2022-06-17 Outpatient MHIE MNA [id number] Memoria 15:00:00 04:59:59 Neurology 00 l Ino Marinelli 2022-06-16 2022-06-16 [id number] 10:00:00 23:59:59 Casimiro 00 Marlon 2022-06-16 2022-06-16 Outpatient MHIE MHIE [id number] Memoria 10:00:00 10:00:00 00 antoinette Marinelli 2022-04-03 2022-04-03 (TEL) STLMLC STLMLC [id number] Co mmon 00:00:00 00:00:00 [facility] 2021-10-17 2021-10-17 SUB ANNUAL STLMLC STLMLC [id number] Common 00:00:00 00:00:00 MCR [facility] WELLNESS - [facility] VISIT [facility] 2021-10-17 2021-10-17 OFFICE STLMLC STLMLC [id number] Co mmon 00:00:00 00:00:00 VISIT EST Spir it PT LEVEL 3 - [facility] 2021-09-05 2021-09-05 (TEL) STLMLC STLMLC [id number] Co mmon 00:00:00 00:00:00 [facility] - [facility] 2021-08-28 2021-08-28 OFFICE STLMLC STLMLC [id number] Co mmon 00:00:00 00:00:00 VISIT EST Spir it PT LEVEL 3 - [facility] 2021-07-29 2021-07-29 (TEL) STLMLC STLMLC [id number] Co mmon 00:00:00 00:00:00 Spirit - [facility] 2020-12-14 2020-12-14 (COVID STLMLC STLMLC [id number] Co mmon 00:00:00 00:00:00 Inj) COVID Spi rit Injection [facility] 2020-11-29 2020-11-29 (TEL) STLMLC STLMLC [id number] Co mmon 00:00:00 00:00:00 [facility] 2020-11-26 2020-11-26 OFFICE STLMLC STLMLC [id number] Co mmon 00:00:00 00:00:00 VISIT EST Spir it PT LEVEL 3 - [facility] 2020-11-23 2020-11-23 (TEL) STLMLC STLMLC [id number] Co mmon 00:00:00 00:00:00 [facility] 2020-11-21 2020-11-21 (TEL) STLMLC STLMLC [id number] Co mmon 00:00:00 00:00:00 [facility] 2020-08-01 2020-08-01 Outpatient STLMLC STLMLC [id number] Common 00:00:00 00:00:00 [facility] 2020-07-26 2020-07-26 Outpatient STLMLC STLMLC [id number] Common 00:00:00 00:00:00 [facility] 2020-07-26 2020-07-26 Outpatient STLMLC STLMLC [id number] Common 00:00:00 00:00:00 [facility] 2020-07-16 2020-07-16 Outpatient STLMLC STLMLC [id number] Common 00:00:00 00:00:00 [facility] 2020-07-11 2020-07-11 Outpatient STLMLC STLMLC [id number] Common 00:00:00 00:00:00 [facility] 2020-04-04 2020-04-04 Outpatient STLMLC STLMLC [id number] Common 00:00:00 00:00:00 [facility] 2020-04-03 2020-04-03 Outpatient STLMLC STLMLC [id number] Common 00:00:00 00:00:00 [facility] 2020-01-31 2020-01-31 Outpatient STLMLC STLMLC [id number] Common 00:00:00 00:00:00 [facility] 2020-01-02 2020-01-02 Outpatient STLMLC STLMLC [id number] Common 00:00:00 00:00:00 [facility] 2020-01-02 2020-01-02 Outpatient STLMLC STLMLC [id number] Common 00:00:00 00:00:00 [facility] 2019-12-21 2019-12-21 Outpatient STLMLC STLMLC [id number] Common 00:00:00 00:00:00 [facility] 2019-04-05 2019-04-05 [facility] [id number] Common 09:45:00 09:45:[address] [facility] [address] [facility] 2018-10-21 2018-10-21 Outpatient [facility] [id number] Common 08:32:00 08:32:[address] [facility] [address] [facility] 2018-10-08 2018-10-08 [facility] [id number] Common 11:00:00 11:00:[address] [facility] [address] [facility] 2018-10-07 2018-10-07 Outpatient [facility] [id number] Common 08:28:00 08:28:[address] [facility] [address] [facility] 2018-09-29 2018-09-29 Out[facility] [id number] Common 15:40:00 15:40:[address] [facility] [address] [facility] 2018-04-26 2018-04-26 Out[facility] [id number] Common 11:15:00 11:15:00 t Urgent Urgent Care S pirit Care [facility] 2018-04-13 2018-04-13 Outpatient [facility] [id number] Common 10:34:00 10:34:[address] [facility] [address] [facility] 2018-04-08 2018-04-08 [facility] [id number] Common 13:30:00 13:30:[address] [facility] 2017-11-18 2017-11-18 Out[facility] [id number] Common 11:17:00 11:17:[address] [facility] 2017-11-16 2017-11-16 Out[facility] [id number] Common 21:34:00 21:34:[address] [facility] 2017-11-16 2017-11-16 Out[facility] [id number] Common 10:30:00 10:30:[address] [facility] 2017-10-08 2017-10-08 [facility] [id number] Common 10:09:00 10:09:00 t Urgent Urgent Care S [facility] Care [facility] 2017-09-29 2017-09-29 [facility] [id number] Common 18:38:00 18:38:[address] [facility] 2017-09-29 2017-09-29 Out[facility] [id number] Common 15:36:00 15:36:[address] [facility] 2017-09-14 2017-09-14 [facility] [id number] Common 09:45:00 09:45:[address] [facility] Results Test Description Test Time Test Comments Results Result Comments Source Lipid Panel w/ Chol/HDL Ratio 2021-09-03 00:00:00 Test Item Value Reference Range Interpretation Comme nts Cholesterol, Total (test code 133 mg/dL See_Comment [Automated message] The system = 2093-3) which generated this result transmitted ref erence range: 100-199 mg/dL. The reference range was not u sed to interpret this result as normal/abnormal. Triglycerides (test code = 73 mg/dL See_Comment [Automated message] The system 3791-8) which generated this result transmitted ref erence range: 0-149 mg/dL. Th e reference range was not used to interpret this result as robinson l/abnormal. HDL Cholesterol (test code = 55 mg/dL See_Comment [Automated message] The system 2084-10) which generated this result transmitted ref erence range: >39 mg/dL. The refe rence range was not used to int erpret this result as robinson l/abnormal. T. Chol/HDL Ratio (test code 2.4 ratio See_Comment [Automated message] The system = 9830-1) which generated this result transmitted ref erence range: 0.0-4.4 ratio. The reference range was not u sed to interpret this result as normal/abnormal. UA/M w/rflx Culture, [id number] 00:00:00 Test Item Value Reference Range Interpretation Comments Specific Teague (test 1.006 1.005-1.030 code = 2965-2) pH (test code = 6.5 5.0-7.5 5803-2) Urine-Color (test code Yellow Yellow = 5778-6) Appearance (test code Clear Clear = 5767-9) WBC Esterase (test 2+ Negative A code = 5799-2) Protein (test code = Negative Negative/Trace 88759-0) Glucose (test code = Negative Negative 9-9) Ketones (test code = Negative Negative 2514-8) Occult Blood (test Negative Negative code = 5794-3) Bilirubin (test code = Negative Negative 5770-3) Urobilinogen,Semi-Qn 0.2 mg/dL See_Comment [Autom ated message] (test code = 08079-4) The sy stem which generated this result transmitted ref erence range: 0.2-1.0 mg/dL. The reference r curry was not used to interpret this result as normal/abnor mal. Nitrite, Urine (test Negative Negative code = 5802-4) Microscopic See below: Examination (test code = 95672-9) Urinalysis Reflex (test code = UNLOINC) Comp. Metabolic Panel (14) (CMP)2021-09-03 00:00:00 Test Item Value Reference Range Interpretation Comments Glucose (test code = 89 mg/dL See_Comment [Autom ated message] 2345-7) The system [employer] generated this result transmitted ref erence range: 65-99 mg /dL. The reference r curry was not used to interpret this result as normal/abnor mal. BUN (test code = 15 mg/dL See_Comment [Automated message] 3094-0) The system [employer] generated this result transmitted ref erence range: 8-27 mg/ dL. The reference r curry was not used to interpret this result as normal/abnor mal. Creatinine (test code 0.65 mg/dL See_Comment [Auto mated message] = 2160-0) The system [employer] generated this result transmitted ref erence range: 0.57-1.0 0 mg/dL. The refe rence range was not u sed to interpret this result as normal/abnor mal. BUN/Creatinine Ratio 23 12-28 (test code = 3097-3) Sodium (test code = 143 mmol/L See_Comment [Automa ga message] 8589-2) The system [employer] generated this result transmitted ref erence range: 134-144 mmol/L. The ref erence range was not u sed to interpret this result as normal/abnor mal. Potassium (test code = 4.4 mmol/L See_Comment [Aut omated message] 4987-3) The system [employer] generated this result transmitted ref erence range: 3.5-5.2 mmol/L. The ref erence range was not u sed to interpret this result as normal/abnor mal. Chloride (test code = 106 mmol/L See_Comment [Auto mated message] 3722-0) The system [employer] generated this result transmitted ref erence range: 96-106 m mol/L. The reference r curry was not used to interpret this result as normal/abnor mal. Carbon Dioxide, Total 24 mmol/L See_Comment [Auto mated message] (test code = 2061-9) The s tem which generated this result transmitted ref erence range: 20-29 mm ol/L. The reference r curry was not used to interpret this result as normal/abnor mal. Calcium (test code = 9.1 mg/dL See_Comment [Autom ated message] 33832-6) The system [employer] generated this result transmitted ref erence range: 8.7-10.3 mg/dL. The refe rence range was not u sed to interpret this result as normal/abnor mal. Protein, Total (test 6.5 g/dL See_Comment [Autom ated message] code = 2885-2) The system [facility] generated this result transmitted ref erence range: 6.0-8.5 g/dL. The reference r curry was not used to interpret this result as normal/abnor mal. Albumin (test code = 4.2 g/dL See_Comment [Autom ated message] 1751-7) The system [facility] generated this result transmitted ref erence range: 3.8-4.8 g/dL. The reference r curry was not used to interpret this result as normal/abnor mal. Globulin, Total (test 2.3 g/dL See_Comment [Auto mated message] code = 62683-5) The system [facility] generated this result transmitted ref erence range: 1.5-4.5 g/dL. The reference r curry was not used to interpret this result as normal/abnor mal. A/G Ratio (test code = 1.8 1.2-2.2 1759-0) Bilirubin, Total (test 0.8 mg/dL See_Comment [Aut omated message] code = 1974-2) The system [facility] generated this result transmitted ref erence range: 0.0-1.2 mg/dL. The reference r curry was not used to interpret this result as normal/abnor mal. Alkaline Phosphatase 115 IU/L See_Comment [Autom ated message] (test code = 6768-6) The s tem which generated this result transmitted ref erence range: 44-121 I U/L. The reference r curry was not used to interpret this result as normal/abnor mal. AST (SGOT) (test code 21 IU/L See_Comment [Auto mated message] = 1920-8) The system [facility] generated this result transmitted ref erence range: 0-40 IU/ L. The reference range was not used to int erpret this result as normal/abnormal . ALT (SGPT) (test code 23 IU/L See_Comment [Auto mated message] = 1742-6) The system [facility] generated this result transmitted ref erence range: 0-32 IU/ L. The reference range was not used to int erpret this result as normal/abnormal . CBC With Differential/[id number] 00:00:00 Test Item Value Reference Range Interpretation Comments WBC (test code = 7.8 x10E3/uL See_Comment [Automated 4790-2) message] The sy stem which generated this result transmitted reference range : 3.4-10.8 x10E3/ uL. The reference r curry was not used to interpret this result as normal/abnormal . RBC (test code = 4.62 x10E6/uL See_Comment [Automate d 789-8) message] The sy stem which generated this result transmitted reference range : 3.77-5.28 x10E6 /uL. The reference r curry was not used to interpret this result as normal/abnormal . Hemoglobin (test code 14.0 g/dL See_Comment [Auto mated = 718-7) message] The sy stem which generated this result transmitted reference range : 11.1-15.9 g/dL. The reference range was not used to interpret this result as normal/abnormal . Hematocrit (test code 42.0 % See_Comment [Auto mated = 4544-3) message] The sy stem which generated this result transmitted reference range : 34.0-46.6 %. Th e reference range was not used to interpret this result as normal/abnormal . MCV (test code = 91 fL See_Comment [Automated 787-2) message] The sy stem which generated this result transmitted reference range : 79-97 fL. The reference range was not used to interpret this result as normal/abnormal . MCH (test code = 30.3 pg See_Comment [Automated 785-6) message] The sy stem which generated this result transmitted reference range : 26.6-33.0 pg. T he reference range was not used to interpret this result as normal/abnormal . MCHC (test code = 33.3 g/dL See_Comment [Automate d 786-4) message] The sy stem which generated this result transmitted reference range : 31.5-35.7 g/dL. The reference range was not used to interpret this result as normal/abnormal . RDW (test code = 12.4 % See_Comment [Automated 788-0) message] The sy stem which generated this result transmitted reference range : 11.7-15.4 %. Th e reference range was not used to interpret this result as normal/abnormal . Platelets (test code 227 x10E3/uL See_Comment [Autom ated = 777-3) message] The sy stem which generated this result transmitted reference range : 150-450 x10E3/u L. The reference r curry was not used to interpret this result as normal/abnormal . Neutrophils (test 52 % Not Estab. % code = 770-8) Lymphs (test code = 40 % Not Estab. % 736-9) Monocytes (test code 6 % Not Estab. % = 5905-5) Eos (test code = 1 % Not Estab. % 713-8) Basos (test code = 1 % Not Estab. % 706-2) Immature Cells (test code = UNLOINC) Neutrophils 4.1 x10E3/uL See_Comment [Automated (Absolute) (test code messag e] The system = 751-8) which generated this result transmitted reference range : 1.4-7.0 x10E3/u L. The reference r curry was not used to interpret this result as normal/abnormal . Lymphs (Absolute) 3.2 x10E3/uL See_Comment H [Automate d (test code = 731-0) message] The system which generated this result transmitted reference range : 0.7-3.1 x10E3/u L. The reference r curry was not used to interpret this result as normal/abnormal . Monocytes(Absolute) 0.5 x10E3/uL See_Comment [Automa ga (test code = 742-7) message] The system which generated this result transmitted reference range : 0.1-0.9 x10E3/u L. The reference r curry was not used to interpret this result as normal/abnormal . Eos (Absolute) (test 0.1 x10E3/uL See_Comment [Autom ated code = 711-2) message] The s ystem which generated this result transmitted reference range : 0.0-0.4 x10E3/u L. The reference r curry was not used to interpret this result as normal/abnormal . Baso (Absolute) (test 0.0 x10E3/uL See_Comment [Auto mated code = 704-7) message] The s ystem which generated this result transmitted reference range : 0.0-0.2 x10E3/u L. The reference r curry was not used to interpret this result as normal/abnormal . Immature Granulocytes 0 % Not Estab. % (test code = 17872-2) Immature Grans (Abs) 0.0 x10E3/uL See_Comment [Autom ated (test code = 29773-4) messag e] The system which generated this result transmitted reference range : 0.0-0.1 x10E3/u L. The reference r curry was not used to interpret this result as normal/abnormal . NRBC (test code = 13594-7) Hematology Comments: (test code = 88284-0) Vitamin D, 01-Ndhgqmx8204-58-26 00:00:00 Test Item Value Reference Range Interpretation Comments Vitamin D, 43.6 ng/mL See_Comment [Automated mes zora] 25-Hydroxy (test The system which code = 1989-3) generated thi s result transmitted ref erence range: 30.0-100 .0 ng/mL. The refe rence range was not u sed to interpret this result as normal/abnor mal. - XR L-SPINE 4+[id number] 15:55:00 FAX: Antwan Spence MD [phone] [place]: St: [facility] Name: ELAINA BRNA [facility] : 1950 Age/S: 56/F [address] [place] [address] Unit #: [id number] Loc: DENISSE Mckeon [address] Phys: Antwan Felder MDAcct: [id number] Dis Date: Status: UNK PHONE #: [phone] Exam Date: 08/19/2007 1600 FAX #: [phone] Reason: PAIN EXAMS: CPT CODE: [id number] XR L-SPINE 4+VIEWS 32275 Four view lumbar spine series. HISTORY: Pain. Vertebral body height and intervertebral disc space height is maintained. There is intervertebral disc space narrowing at L5-S1. Straightening of lumbar spine may reflect muscle spasm. Bony pelvis is unremarkable. Bowel gas pattern is nonspecific. IMPRESSION: 1. Degenerative disc disease L5-S1. 2. Straightening of the normal lumbar curvature may reflect muscle spasm. at 1556 Reported and signed by: Fermín Rooney CC: Antwan Felder Technologist: STUDENT; Ria Collazo Trnscrd Date/Time/By: 08/19/2007 (7950) : By: KELLIE Bailey Print D/T: S: 08/19/2007 (5211) PAGE 1 Signed Report
[2022-12-19 12:23] LABS: Absolute Lymphocytes (CBC) 3.6 K/uL (0.7-4.9); Hematocrit 41.9 % (36.0-45.0); Lymphocytes % 38.8 % (15.3-44.8); MCV 89.3 fL (80-100); MPV 8.4 fL (7.6-11.3); Platelets 265 thou/uL (152-406); RBC Red Blood Cell Count 4.69 M/uL (3.86-4.86)
--- NOTE | 2022-12-19 12:26 | RAD REPORT ---
EXAM DESCRIPTION: RAD - Chest Single View - 12/19/2022 12:10 pm CLINICAL HISTORY: right posterior thoracic pain Chest pain. COMPARISON: Chest Pa And Lat (2 Views) dated 02/13/2017; CHEST SINGLE VIEW dated 03/27/2015; CHEST SING LE VIEW dated 12/11/2013; CHEST PA AND LAT 2 VIEW dated 01/16/2012 FINDINGS: Portable technique limits examination quality. The lungs are emphysematous but grossly clear. The heart is normal in size. No displaced fractures. IMPRESSION: No acute intrathoracic process suspected. Mild COPD.
[2022-12-19 12:36] LABS: Albumin 3.9 g/dL (3.4-5.0); Bilirubin Direct 0.2 mg/dL (0-0.2); Bilirubin Indirect, Calculated 0.4 mg/dL (0.2-0.8); Bilirubin Total 0.6 mg/dL (0.2-1.0); Potassium 3.9 mEq/L (3.5-5.1); Protein, Total 7.4 g/dL (6.4-8.2); Troponin High Sensitivity 54.8 pg/mL (<58.9)
--- NOTE | 2022-12-19 13:30 | RAD REPORT ---
EXAM DESCRIPTION: CT - Chest For Pe Angio - 12/19/2022 12:55 pm CLINICAL HISTORY: right periscapular pain, pleurisy COMPARISON: No comparisons TECHNIQUE: Thin axial CT images of the chest were obtained following administration of 100 mL mL Iso giovanny 370 IV contrast. Multiplanar reconstructions, and maximum intensity projection reconstructions we re generated and reviewed. Exam utilizes a protocol for optimal evaluation of pulmonary arterial tree . All CT scans are performed using dose optimization technique as appropriate and may include automated exposure control or mA/KV adjustment according to patient size. FINDINGS: Pulmonary arteries are normal. No emboli or other suspicious finding. No acute or signific ant aorta findings. No mass or infiltrate in the lung parenchyma. No pleural thickening or pleural effusion. No pneumotho rax. No abnormal mediastinal or hilar masses or lymphadenopathy seen. No chest wall mass or abnormal axill iary lymphadenopathy. IMPRESSION: No evidence of acute central pulmonary emboli. No other acute pulmonary process.
--- NOTE | 2022-12-19 14:40 | EDPHYS ---
Physician Documentation [facility] Name: Elaina Cook Age: 72 yrs Sex: Female : 1950 Arrival Date: 12/19/2022 Time: 11:19 Bed 14 Private MD: ED Physician Deuce Brower HPI: 12/19 11:50 This 72 yrs old Female presents to ER via Unassigned with complaints of Shallow rn breathing. 11:56 The patient or guardian reports chest pain that is located primarily in the Right rn periscapular region. Onset: 5 day(s) ago. The pain does not radiate. Associated signs and symptoms: Pertinent positives: shortness of breath, Pertinent negatives: abdominal pain, cough, diaphoresis, vomiting. The chest pain is described as sharp, stabbing. Duration: The patient or guardian reports multiple episodes, that are intermittent. Modifying factors: The symptoms are alleviated by nothing. the symptoms are aggravated by cough, deep breath. Severity of pain: At its worst the pain was moderate in the emergency department the pain is unchanged. The patient has not experienced similar symptoms in the past. Patient reports right subscapular pain that began 5 days ago, worse with deep inspiration, associated with mild shortness of breath. Denies fever or illness. No recent illness. No history of DVT or PE. No trauma or fall. 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 No abdominal pain.. Historical: - Allergies: 11:54 HYDROCODONE; iw 11:54 PENICILLINS; iw 11:54 shrimp; iw 11:54 Sulfa (Sulfonamide Antibiotics); iw - PMHx: 11:54 Anxiety; iw - Immunization history:: Adult Immunizations up to date. - Family history:: not pertinent. - Social history:: Smoking status: unknown. - Hospitalizations: : No recent hospitalization is reported. ROS: 11:56 Constitutional: Negative for fever, chills, and weight loss, Eyes: Negative for injury, rn pain, redness, and discharge, Neck: Negative for injury, pain, and swelling, Cardiovascular: Positive for chest pain Respiratory: Positive for pleuritic chest pain as well as shortness of breath Abdomen/GI: Negative for abdominal pain, nausea, vomiting, diarrhea, and constipation, MS/Extremity: Negative for injury and deformity, Skin: Negative for injury, rash, and discoloration, Neuro: Negative for headache, weakness, numbness, tingling, and seizure, Exam: 11:56 Constitutional: This is a well developed, well nourished patient who is awake, alert, rn and in no acute distress. Neck: No midline cervical tenderness Cardiovascular: Regular rate and rhythm. No pulse deficits. Respiratory: Clear bilateral breath sounds. No increased work of breathing, no retractions or nasal flaring. Abdomen/GI: Soft, non-tender Back: No spinal tenderness. No focal tenderness or crepitus around scapula Skin: Warm, dry MS/ Extremity: Pulses equal, no cyanosis. Neuro: Awake and alert, GCS 15 14:16 ECG was reviewed by the Attending Physician. rn Vital Signs: 11:53 BP 146 / 86; Pulse 76; Resp 19; Temp 98.6; Pulse Ox 100% on R/A; iw 12:45 BP 152 / 74; Pulse 66; Resp 18; Pulse Ox 100% on R/A; eh3 13:45 BP 101 / 86; Pulse 65; Resp 18; Pulse Ox 99% on R/A; eh3 14:45 BP 145 / 65; Pulse 64; Resp 16; Pulse Ox 99% on R/A; eh3 MDM: 11:26 Patient medically screened. rn 13:49 ED course: No acute findings and blood for CT PE protocol. Troponin normal but on the rn higher end of normal, convince patient to stay for repeat troponin to rule out cardiac etiology. If repeat troponin not trending upward, anticipate discharge home as possible muscular pain or musculoskeletal pain.. 14:36 Differential diagnosis: acute myocardial infarction, acute pericarditis, anxiety, rn coronary artery disease chest wall pain, congestive heart failure cholecystitis, Cholelithiasis costochondritis, esophagitis, gastritis, gastroesophageal reflux disease (GERD), pancreatitis, peptic ulcer disease, pneumonia, pneumothorax, pulmonary embolus. Data reviewed: vital signs, nurses notes, lab test result(s), EKG, radiologic studies, CT scan, plain films, and as a result, I will discharge patient. Counseling: I had a detailed discussion with the patient and/or guardian regarding the historical points, exam findings, and any diagnostic results supporting the discharge/admit diagnosis, lab results, radiology results, the need for outpatient follow up, to return to the emergency department if symptoms worsen or persist or if there are any questions or concerns that arise at home. Special discussion: I discussed with the patient/guardian in detail that at this point there is no indication for admission to the hospital. It is understood, however, that if the symptoms persist or worsen the patient needs to return immediately for re-evaluation. ED course: Repeat troponin negative. I have personally reviewed all of the results, including but not limited to blood tests and imaging deemed necessary to safely discharge this patient at this time. All results given to and printed out for patient. I personally went over all the results with the patient and answered all questions. Patient will follow-up with PCP and or specialist as discussed. Return precautions given and understood.. 12/19 11:49 Order name: Basic Metabolic Panel; Complete Time: 12:56 rn 12/19 11:49 Order name: CBC with Diff; Complete Time: 12:56 rn 12/19 11:49 Order name: LFT's; Complete Time: 12:56 rn 12/19 11:49 Order name: NT PRO-BNP; Complete Time: 12:56 rn 12/19 11:49 Order name: Troponin HS; Complete Time: 12:56 rn 12/19 13:46 Order name: Troponin HS; Complete Time: 14:36 eh3 12/19 11:49 Order name: XRAY Chest (1 view); Complete Time: 12:56 rn 12/19 11:49 Order name: CT Chest For PE Angio; Complete Time: 13:40 rn 12/19 11:49 Order name: EKG; Complete Time: 11:49 rn 12/19 11:49 Order name: Cardiac monitoring; Complete Time: 13:03 rn 12/19 11:49 Order name: EKG - Nurse/Tech; Complete Time: 13:03 rn 12/19 11:49 Order name: IV Saline Lock; Complete Time: 12:48 rn 12/19 11:49 Order name: Labs collected and sent; Complete Time: 12:48 rn 12/19 11:49 Order name: O2 Per Protocol; Complete Time: 12:48 rn 12/19 11:49 Order name: O2 Sat Monitoring; Complete Time: 12:48 rn EC:16 Rate is 68 beats/min. Rhythm is regular. QRS [place] is Normal. CA interval is normal. QRS rn interval is normal. QT interval is normal. No Q waves. T waves are Normal. No ST changes noted. Clinical impression: Normal ECG. Interpreted by me. Reviewed by me. Administered Medications: No medications were administered Disposition Summary: 12/19/22 14:39 Discharge Ordered Notes: Location: Home rn Problem: an ongoing problem rn Symptoms: have improved rn Condition: Stable rn Diagnosis - Pain of posterior thorax/back rn Followup: rn - With: Private Physician - When: As needed - Reason: Recheck today's complaints, Re-evaluation by your physician Discharge Instructions: - Discharge Summary Sheet rn - Acute Back Pain, Adult rn Forms: - Medication Reconciliation Form rn - Thank You Letter rn - Antibiotic return to vendor - Prescription Opioid Use rn - Patient Portal Instructions rn - Leadership Thank You Letter rn Prescriptions: - Cyclobenzaprine 5 mg Oral tablet - take 1 tablet ORAL route every 8-12 hours As needed; 15 tablet; Refills: 0, rn Product Selection Permitted Signatures: Dispatcher [employer] Mikki Mosley RN RN iw Nieto, Roman, MD MD rn Hall, Erin, RN RN eh3
--- NOTE | 2022-12-19 14:40 | ER ---
Nurse's Notes [facility] Name: Elaina Cook Age: 72 yrs Sex: Female : 1950 Arrival Date: 12/19/2022 Time: 11:19 Bed 14 Private MD: Diagnosis: Pain of posterior thorax/back Presentation: 12/19 11:50 Acuity: RADHA 3 iw 11:53 Chief complaint: Patient states: pain to right shoulder and mid back , hurt when iw breathing. Coronavirus screen: At this time, the client does not indicate any symptoms associated with coronavirus-19. Ebola Screen: Patient negative for fever greater than or equal to 101.5 degrees Fahrenheit, and additional compatible Ebola Virus Disease symptoms Patient denies exposure to infectious person. Patient denies travel to an Ebola-affected area in the 21 days before illness onset. No symptoms or risks identified at this time. Initial Sepsis Screen: Does the patient meet any 2 criteria? No. Patient's initial sepsis screen is negative. Does the patient have a suspected source of infection? No. Patient's initial sepsis screen is negative. Risk Assessment: Do you want to hurt yourself or someone else? Patient reports no desire to harm self or others. 11:53 Method Of Arrival: Ambulatory iw Historical: - Allergies: 11:54 HYDROCODONE; iw 11:54 PENICILLINS; iw 11:54 shrimp; iw 11:54 Sulfa (Sulfonamide Antibiotics); iw - PMHx: 11:54 Anxiety; iw - Immunization history:: Adult Immunizations up to date. - Family history:: not pertinent. - Social history:: Smoking status: unknown. - Hospitalizations: : No recent hospitalization is reported. Screenin:00 [facility] ED Fall Risk Assessment (Adult) Score/Fall Risk Level 0 - 2 = Low Risk. Abuse eh3 screen: Denies threats or abuse. Denies injuries from another. Nutritional screening: No deficits noted. Tuberculosis screening: No symptoms or risk factors identified. Assessment: 12:00 General: Appears in no apparent distress. uncomfortable, Behavior is calm, cooperative, eh3 appropriate for age. Pain: Complains of pain in anterior aspect of left shoulder and posterior aspect of left shoulder Pain radiates to left mid back. Neuro: Level of Consciousness is awake, alert, obeys commands, Oriented to person, place, time, situation. Cardiovascular: Capillary refill < 3 seconds Patient's skin is warm and dry. Respiratory: Airway is patent Respiratory effort is even, unlabored, Respiratory pattern is regular, symmetrical. GI: Abdomen is round non-distended. Derm: Skin is pink, warm \T\ dry. Musculoskeletal: Circulation, motion, and sensation intact. Range of motion: intact in all extremities. 12:45 Reassessment: Patient appears in no apparent distress at this time. Patient and/or 3 family updated on plan of care and expected duration. Pain level reassessed. Patient is alert, oriented x 3, equal unlabored respirations, skin warm/dry/pink. 13:45 Reassessment: Patient appears in no apparent distress at this time. Patient and/or 3 family updated on plan of care and expected duration. Pain level reassessed. Patient is alert, oriented x 3, equal unlabored respirations, skin warm/dry/pink. 14:45 Reassessment: Patient appears in no apparent distress at this time. Patient and/or 3 family updated on plan of care and expected duration. Pain level reassessed. Patient is alert, oriented x 3, equal unlabored respirations, skin warm/dry/pink. Vital Signs: 11:53 BP 146 / 86; Pulse 76; Resp 19; Temp 98.6; Pulse Ox 100% on R/A; iw 12:45 BP 152 / 74; Pulse 66; Resp 18; Pulse Ox 100% on R/A; eh3 13:45 BP 101 / 86; Pulse 65; Resp 18; Pulse Ox 99% on R/A; eh3 14:45 BP 145 / 65; Pulse 64; Resp 16; Pulse Ox 99% on R/A; eh3 ED Course: 11:22 Patient arrived in ED. im 11:26 Deuce Brower MD is Attending Physician. rn 11:50 Triage completed. iw 12:00 Patient has correct armband on for positive identification. Placed in gown. Bed in low eh3 position. Call light in reach. Side rails up X2. Provided Education on: use of call carrero. Client placed on continuous cardiac and pulse oximetry monitoring. NIBP monitoring applied. 12:00 Arm band placed on. eh3 12:07 Kandy Colindres, GENE is Primary Nurse. eh3 12:12 XRAY Chest (1 view) In Process Unspecified. EDMS 12:15 Missed attempt(s): 22 gauge in left antecubital area. Bleeding controlled, band aid eh3 applied, catheter tip intact. 12:45 Missed attempt(s): 22 gauge in left antecubital area. Bleeding controlled, band aid jl7 applied, catheter tip intact. 12:48 Inserted saline lock: 22 gauge in right antecubital area, using aseptic technique. jl7 Blood collected. 12:56 CT Chest For PE Angio In Process Unspecified. EDMS 14:55 No provider procedures requiring assistance completed. IV discontinued, intact, eh3 bleeding controlled, No redness/swelling at site. Pressure dressing applied. Administered Medications: No medications were administered Medication: 14:55 VIS not applicable for this client. 3 Outcome: 14:39 Discharge ordered by . rn 14:55 Discharged to home ambulatory, 3 14:55 Condition: stable 14:55 Discharge instructions given to patient, Instructed on discharge instructions, follow up and referral plans. medication usage, Demonstrated understanding of instructions, follow-up care, medications, Prescriptions given X 1, 15:12 Patient left the ED. 3 Signatures: Dispatcher [employer] EDMS Mikki Milligan, RN Deuce Amezquita MD MD rn Leal, Jahala, RN RN jl7 Kandy Colindres RN RN 3 Coby Castaneda
[2022-12-19 15:22] VITALS: TEMP 98.6
[2022-12-19 15:25] VITALS: O2SAT 99
[2022-12-19 15:27] VITALS: BP 145/65
--- NOTE | 2022-12-20 14:08 | EKG ---
Test Date: 2022-12-19 Test Time: 14:23:14 Tub Wash Operator: DENISE MEASUREMENT RESULTS: Intervals: Rate: 68 FL: 140 QRSD: 96 QT: 422 QTc: 448 [place]: P: 63 FL: 140 QRS: 75 T: 73 INTERPRETIVE STATEMENTS: Normal sinus rhythm Normal ECG Compared to ECG 03/28/2015 09:16:01 No significant changes Electronically Signed On 12-20-22 14:06:51 ENDOSCOPY TECHNICIAN by Joni Peña
== END 2022-12-19 15:12 | disposition home or self-care (01) ==
LOC: ER 11:19
DX: R07.9 Chest pain, unspecified (principal); M54.9 Dorsalgia, unspecified; R06.02 Shortness of breath; Z88.0 Allergy status to penicillin; Z88.2 Allergy status to sulfonamides; Z88.5 Allergy status to narcotic agent; Z91.013 Allergy to seafood
CPT/HCPCS: 93005; 85025; 80048; 36415; 80076; 84484 ×2; 83880; 71275; 71045; 99284; Q9967